=== PATIENT | male | born 1965 | race Caucasian/White ===

== ENCOUNTER 2017-02-04 11:33 | Emergency (ER) | payer BC ==
--- NOTE | 2017-02-04 12:15 | UC ---
Respiratory Complaint HPI - HPI Summary HPI Summary: Patient presents to with CC nasal congestion, sinus pressure and pain, cough with sputum production, ear and head fullness, sore throat, post nasal drip x 5 days. He lives with his father who was recently hospitalized for PNA. Denies SOB but feels very congested in his chest. He has no significant history of sinus infections or PNA and is otherwise healthy. He states his voice is raspy and he feels fatigued. Cough is not worse or better at night. - History of Current Complaint Chief Complaint: UCRespiratory Stated Complaint: URI Time Seen by Provider: 02/04/17 11:52 Hx Obtained From: Patient Onset/Duration: Sudden Onset Severity Initially: Moderate Severity Currently: Moderate Pain Intensity: 4 Pain Scale Used: 0-10 Numeric Character: Cough: Productive Aggravating Factors: Allergens, Deep Breaths Alleviating Factors: Upright Position Associated Signs And Symptoms: Positive: URI, Nasal Congestion, Hoarseness, Sinus Discomfort - Risk Factors Pulmonary Embolism Risk Factors: Negative Cardiac Risk Factors: Negative Pseudomonas Risk Factors: Negative Tuberculosis Risk Factors: Negative - Allergies/Home Medications Allergies/Adverse Reactions: Allergies Allergy/AdvReac Type Severity Reaction Status Date / Time No Known Allergies Allergy Verified 02/04/17 11:36 PMH/Surg Hx/FS Hx/Imm Hx Previously Healthy: Yes Endocrine History Of: Denies: Diabetes, Thyroid Disease Cardiovascular History Of: Denies: Cardiac Disorders, Hypertension Respiratory History Of: Denies: COPD, Asthma GI/ History Of: Denies: Ulcer - Surgical History Surgical History: None - Family History Family History: NON CONTRIBUTORY - Social History Occupation: Employed Full-time Lives: With Family Alcohol Use: Occasionally Substance Use Type: None Smoking Status (MU): Never Smoked Tobacco - Immunization History Most Recent Influenza Vaccination: SEP 2016 Most Recent Pneumonia Vaccination: NO Review of Systems Constitutional: Fatigue Skin: Negative ENT: Sore Throat, Ear Ache, Nasal Discharge Respiratory: Cough Cardiovascular: Negative Motor: Negative Neurovascular: Negative Neurological: Negative Psychological: Negative All Other Systems Reviewed And Are Negative: Yes Physical Exam Triage Information Reviewed: Yes Appearance: Well-Appearing, No Pain Distress, Well-Nourished Vital Signs: Initial Vital Signs Temp 97.1 F 02/04/17 11:39 Pulse 69 02/04/17 11:39 Resp 16 02/04/17 11:39 BP 135/94 02/04/17 11:39 Pulse Ox 99 02/04/17 11:39 Vital Signs Reviewed: Yes Eye Exam: Normal Eyes: Positive: Conjunctiva Clear ENT Exam: Normal ENT: Positive: Pharynx normal, Nasal congestion, Nasal drainage, TMs normal Dental Exam: Normal Neck exam: Normal Neck: Positive: Supple, Nontender, No Lymphadenopathy Respiratory Exam: Normal Respiratory: Positive: Chest non-tender, Lungs clear, Normal breath sounds, No respiratory distress Cardiovascular Exam: Normal Cardiovascular: Positive: RRR Musculoskeletal Exam: Normal Musculoskeletal: Positive: Strength Intact Neurological Exam: Normal Neurological: Positive: Alert Psychological Exam: Normal Psychological: Positive: Normal Response To Family, Age Appropriate Behavior Skin Exam: Normal UC Diagnostic Evaluation - Laboratory O2 Sat by Pulse Oximetry: 99 Respiratory Course/Dx - Course Course Of Treatment: Patient lives with father who is currently hospitalized for a PNA. Patient has felt these symptoms for 4 days during his fathers first onset of illness. He states he has sinus pressure and pain with cough with sputum production. Lungs clear to auscultation bilaterally. Cough with raspy voice. Otherwise benign physical exam. No noticeable SOB or breathing problems. Patient given prednisone to reduce inflammation in the lungs, tessalon for cough and augmentin for sinus infection d/t his recent sick contacts. It is not necessary at this time to obtain an xray. Patient agrees as he is afebrile with no accessory lung sounds. Patient encouraged to follow up if anything changes. Note given for 1 day off work. - Differential Dx/Diagnosis Differential Diagnosis/HQI/PQRI: Bronchitis, Lower Resp Infection, Sinusitis Provider Diagnoses: sinusitis Discharge - Discharge Plan Condition: Stable Disposition: HOME Prescriptions: Amoxicillin/Clavulanate TAB* [Augmentin TAB 875*] 875 mg PO BID #14 tab MDD 2 Benzonatate CAP* [Tessalon CAP*] 100 mg PO TID #21 cap predniSONE TAB* [Deltasone TAB*] 50 mg PO DAILY #5 tab predniSONE TAB* [Deltasone TAB*] 50 mg PO DAILY #5 tab Patient Education Materials: Sinusitis (ED) Forms: *Work Release Referrals: Regine Lua MD [Primary Care Provider] - Additional Instructions: Claritin over the counter once per day can help with head congestion. Afrin spray over the counter for any nasal congestion. Do not use for more than 5 days. Take antibiotics as prescribed to you for the next 7 days. Prednisone once daily in the morning for 5 days. Tessalon as needed for cough. If symptoms become worse, come back to the or go to the ED. Drink plenty of fluids. If you feel you cannot get enough fluids, supplement with Gatorade. A humidifier in the home can help with congestion during the colder months. Take any medication prescribed to you as directed. If you have any questions regarding your medications, you may call the office or your pharmacist. If your symptoms fail to improve or worsen, please call your primary care provider, come back to urgent care or the emergency room. If you develop a fever not well controlled with Tylenol, come back to or go the the ED. Rest.
== END 2017-02-04 12:21 | disposition home or self-care (01) ==
LOC: UCEAST 11:33
DX: J32.9 Chronic sinusitis, unspecified (principal)
CPT/HCPCS: 99212; G0463

== ENCOUNTER 2018-05-28 20:47 | Emergency (ER) | payer SELFPAY ==
[2018-05-28 20:55] VITALS: BP 147/97
[2018-05-28] MEDS ORDERED: Amoxicillin/Clavulanate TAB* 875 MG PO ONE (21:05)
--- NOTE | 2018-05-28 21:10 | UC ---
Throat Pain/Nasal Marvin HPI - HPI Summary HPI Summary: This is scribe Avi Quispe documenting for attending Karsten Fajardo MD. This patient is a 52 year old M presenting to [facility] with a chief complaint of sore throat since 3 weeks ago. The patient rates the pain 9/10 in severity. Patient reports post nasal drip, hoarse voice, left ear pain, sharp pain with swallowing that radiates to his left ear, and slight JARRETT. Patient denies sinus pressure, abd pain, or teeth pain. Pt reports that he went to [facility] 2 weeks ago and they told him it was a virus. Pt has been using Ibuprofen and gargling salt water but nothing has alleviated his symptoms. PMHX seasonal allergies. No PMHx thyroid problems or GERD. SHX nonsmoker. RX none. Pt takes Zyrtec D for seasonal allergies. NKDA. I, Dr. Fajardo, personally performed the services described in this documentation as scribed in my presence and it is both accurate and complete. - History of Current Complaint Chief Complaint: UCGeneralIllness Stated Complaint: SORE THROAT Time Seen by Provider: 05/28/18 20:57 Hx Obtained From: Patient Onset/Duration: Sudden Onset, Lasting Weeks - 3 Severity: Severe Pain Intensity: 9 Pain Scale Used: 0-10 Numeric Associated Signs & Symptoms: Positive: Hoarseness Related History: Seasonal Allergies - Allergies/Home Medications Allergies/Adverse Reactions: Allergies Allergy/AdvReac Type Severity Reaction Status Date / Time No Known Allergies Allergy Verified 05/28/18 20:55 PMH/Surg Hx/FS Hx/Imm Hx Endocrine History: Other - No PMHx thyroid Other Endocrine History: . GI/ History: Other - no PMHx GERD Other GI/ History: . - Surgical History Surgical History: None Surgery Procedure, Year, and Place: T&A - Family History Known Family History: Positive: Other - seasonal allergies Family History: NON CONTRIBUTORY - Social History Alcohol Use: Daily Substance Use Type: None Smoking Status (MU): Never Smoked Tobacco - Immunization History Most Recent Influenza Vaccination: SEP 2016 Most Recent Pneumonia Vaccination: NO Review of Systems ENT: Sore Throat, Ear Ache - left, Sinus Pain/Tenderness, Other - hoarse voice, post nasal drip Neurological: Headache All Other Systems Reviewed And Are Negative: Yes Physical Exam - Summary Physical Exam Summary: General: well-appearing, no pain distress Skin: warm, color reflects adequate perfusion, dry Head: normal Eyes: EOMI, ARCENIO ENT: normal Neck: Mild TTP left anterior throat. No obvious swelling. Thyroid feels normal in size. Posterior pharynx is benign Respiratory: CTA, breath sounds present Cardiovascular: RRR Abdomen: soft, nontender Bowel: present Musculoskeletal: normal, strength/ROM intact Neurological: sensory/motor intact, A&O x3 Psychological: affect/mood appropriate Triage Information Reviewed: Yes Vital Signs: Initial Vital Signs Temp 98.2 F 05/28/18 20:51 Pulse 80 05/28/18 20:51 Resp 18 05/28/18 20:51 BP 147/97 05/28/18 20:51 Pulse Ox 99 05/28/18 20:51 Vital Signs Reviewed: Yes Throat Pain/Nasal Course/Dx - Course Course Of Treatment: WILL TREAT WITH TRIAL OF ABX. POSSIBLE POST NASAL DRIP FROM A SINUSITIS. DISCUSSED OTHER POSSIBLE CAUSES TO INCLUDE GERD. DISCUSSED FURTHER EVALUATION BY PMD AND ENT IF NOT COMPLETELY IMPROVED. - Differential Dx/Diagnosis Provider Diagnoses: THROAT PAIN Discharge - Sign-Out/Discharge Documenting (check all that apply): Patient Departure - Discharge Plan Condition: Stable Disposition: HOME Prescriptions: Amoxicillin/Clavulanate TAB* [Augmentin TAB 875*] 875 mg PO BID #19 tab Patient Education Materials: Pharyngitis (ED) Referrals: [facility] [Outside] Junaid Shahid MD [Medical Doctor] - No Primary Care Phys,NOPCP [Primary Care Provider] - Additional Instructions: FOLLOW UP WITH YOUR PRIMARY CARE DOCTOR. GET AN EVALUATION BY ENT IF NOT IMPROVING. GET RECHECKED FOR ANY WORSENING OF YOUR CONDITION OR QUESTIONS OR CONCERNS. - Billing Disposition and Condition Condition: STABLE Disposition: Home
== END 2018-05-28 21:15 | disposition home or self-care (01) ==
LOC: UCEAST 20:47
DX: R07.0 Pain in throat (principal); H92.02 Otalgia, left ear; R51 Headache; R09.82 Postnasal drip
CPT/HCPCS: 99211; A9270-GY; G0463